=== PATIENT | female | born 1950 | race American Indian/Alaskan Native ===

== ENCOUNTER 2019-03-30 18:46 | Emergency (ER) | payer MEDICARE ==
[2019-03-30] MEDS ORDERED: ASPIRIN 325 MG TAB PO ONE (19:09)
--- NOTE | 2019-03-30 19:11 | Event Note ---
ED Screening Note Date of service: 03/30/19 Time: 19:08 ED Screening Note: this 68 yo female presents with left sided chest pain x yesterday PMH: HTN on meds This initial assessment/diagnostic orders/clinical plan/treatment(s) is/are subject to change based on patients health status, clinical progression and re- assessment by fellow clinical providers in the ED. Further treatment and workup at subsequent clinical providers discretion. Patient/guardian urged not to elope from the ED as their condition may be serious if not clinically assessed and managed. Initial orders include: cp protocol
[2019-03-30 19:25] LABS: Basophils # (Auto) 0.1 K/mm3 (0.0-0.1); Basophils % (Auto) 1.3 % (0.0-1.8); Eosinophils # (Auto) 0.1 K/mm3 (0.0-0.4); Eosinophils % (Auto) 1.2 % (0.0-4.3); Hematocrit 44.3 % (30.3-42.9); Hemoglobin 15.2 gm/dl (10.1-14.3); Lymphocytes # (Auto) 1.9 K/mm3 (1.2-5.4); Lymphocytes % (Auto) 29.8 % (13.4-35.0); Mean Corpuscular HGB Conc 34 % (30-34); Mean Corpuscular Volume 97 fl (79-97); Monocytes # (Auto) 0.8 K/mm3 (0.0-0.8); Monocytes % (Auto) 12.8 % (0.0-7.3); Platelet Count 272 K/mm3 (140-440); Red Blood Count 4.57 M/mm3 (3.65-5.03); Red Cell Distribution Width 14.9 % (13.2-15.2)
--- NOTE | 2019-03-30 19:39 | XRay Report ---
CHEST 2 VIEWS INDICATION: Chest Pain. COMPARISON: 02/03/2018 FINDINGS: Support devices: None. Heart: Within normal limits. Lungs/pleura: No acute air space or interstitial disease. No pneumothorax. Additional findings: None. IMPRESSION: 1. No acute findings. Signer Name: Rupert Villaseñor MD Signed: 03/30/2019 7:34 PM Workstation Name: [id number]
[2019-03-30 19:47] LABS: BUN/Creatinine Ratio 10; Blood Urea Nitrogen 4 mg/dL (7-17); Calcium 8.5 mg/dL (8.4-10.2); Hemolysis Index 16
[2019-03-30] MEDS ORDERED: ALBUTEROL 2.5 MG/3 ML NEBU IH ONE (22:38)
[2019-03-30] MEDS ORDERED: IPRATROPIUM 0.02% NEBU 2.5 ML IH ONE (22:38)
[2019-03-30] MEDS ORDERED: SODIUM CHLORIDE 0.9% 1000 ML 1,000 ML IV ONE (22:38)
[2019-03-30] MEDS ORDERED: dexAMETHasone 20 MG/5 ML VIAL IV ONE (22:38)
[2019-03-30] MEDS ORDERED: traMADol 50 MG TAB PO ONE (22:38)
--- NOTE | 2019-03-30 22:58 | Emergency Department Report ---
ED General Adult HPI - General Chief complaint: Chest Pain Stated complaint: CHEST PAIN Time Seen by Provider: 03/30/19 22:27 Source: patient Mode of arrival: Ambulatory Limitations: No Limitations - History of Present Illness Initial comments: Patient is a 68-year-old female presented with chest discomfort. Patient has a history of hypertension COPD who does occasional breathing treatments at home but is not oxygen dependent. Patient states that for the last week she's had some soreness mostly in the left chest. Patient states soreness is worse with coughing and occasionally with certain movements. Patient states is a tight sensation that'll last up to several seconds at a time. States since been intermittent. Patient states chest pain was worse today and is more continuous. Patient states she has not had any extra shortness of breath besides the shortness of breath and only experiences with her COPD however she has had increased cough which is productive of clear yellow sputum. Cough is been present for the same time that the patient has been having the chest discomfort. Patient also states he's had some decreased appe tite. Patient is less when she is not feeling well. She's had some mild dizziness as well. - Related Data Home Medications Medication Instructions Recorded Confirmed Last Taken Ascorbic Acid [Vitamin C with Dee Dee 1,000 mg PO BID 02/03/18 02/03/18 Unknown Hips] Carvedilol [Coreg] 25 mg PO BID 02/03/18 02/03/18 02/02/18 Cholecalciferol Vit D3 [Vitamin D3] 1,000 unit PO QWEEK 02/03/18 02/03/18 Unknown Previous Rx's Medication Instructions Recorded Last Taken Type HYDROcodone/APAP 5-325 [[place] 1 each PO Q6HR PRN #15 tablet 02/03/18 Unknown Rx 5/325] ALBUTEROL NEB's [Proventil 0.083% 2.5 mg IH TID PRN #20 neb 03/31/19 Unknown Rx NEBS] Benzonatate [Tessalon Perles] 100 mg PO Q8HR #10 capsule 03/31/19 Unknown Rx DOXYCYCLINE Hyclate [Vibramycin 100 mg PO Q12HR #14 capsule 03/31/19 Unknown Rx CAP] Fluticasone [Flonase] 1 spray NS QDAY #1 bottle 03/31/19 Unknown Rx predniSONE [Deltasone] 20 mg PO QDAY #5 tab 03/31/19 Unknown Rx Allergies Allergy/AdvReac Type Severity Reaction Status Date / Time No Known Allergies Allergy Unverified 02/03/18 03:06 ED Review of Systems ROS: Stated complaint: CHEST PAIN Other details as noted in HPI Comment: All other systems reviewed and negative ED Past Medical Hx - Past Medical History Previous Medical History?: Yes Hx Hypertension: Yes - Surgical History Past Surgical History?: No - Social History Smoking Status: Current Every Day Smoker Substance Use Type: Alcohol - Medications Home Medications: Home Medications Medication Instructions Recorded Confirmed Last Taken Type Ascorbic Acid [Vitamin C with Dee Dee 1,000 mg PO BID 02/03/18 02/03/18 Unknown History Hips] Carvedilol [Coreg] 25 mg PO BID 02/03/18 02/03/18 02/02/18 History Cholecalciferol Vit D3 [Vitamin D3] 1,000 unit PO QWEEK 02/03/18 02/03/18 Unknown History HYDROcodone/APAP 5-325 [[place] 1 each PO Q6HR PRN #15 tablet 02/03/18 Unknown Rx 5/325] ALBUTEROL NEB's [Proventil 0.083% 2.5 mg IH TID PRN #20 neb 03/31/19 Unknown Rx NEBS] Benzonatate [Tessalon Perles] 100 mg PO Q8HR #10 capsule 03/31/19 Unknown Rx DOXYCYCLINE Hyclate [Vibramycin 100 mg PO Q12HR #14 capsule 03/31/19 Unknown Rx CAP] Fluticasone [Flonase] 1 spray NS QDAY #1 bottle 03/31/19 Unknown Rx predniSONE [Deltasone] 20 mg PO QDAY #5 tab 03/31/19 Unknown Rx ED Physical Exam - General Limitations: No Limitations General appearance: alert, in no apparent distress - Head Head exam: Present: atraumatic, normocephalic - Eye Eye exam: Present: normal appearance, PERRL, EOMI - ENT ENT exam: Present: normal orophraynx, mucous membranes moist - Neck Neck exam: Present: normal inspection - Respiratory Respiratory exam: Present: normal lung sounds bilaterally, wheezes (patient has a bronchitic cough. Patient coughs every time she takes a deep breath.). Absent: respiratory distress, rales, rhonchi - Cardiovascular Cardiovascular Exam: Present: regular rate, normal rhythm. Absent: systolic murmur, diastolic murmur, rubs, gallop - GI/Abdominal GI/Abdominal exam: Present: soft, normal bowel sounds. Absent: distended, tenderness, guarding, rebound - Extremities Exam Extremities exam: Present: normal inspection - Back Exam Back exam: Present: normal inspection - Neurological Exam Neurological exam: Present: alert, oriented X3 - Psychiatric Psychiatric exam: Present: normal affect, normal mood - Skin Skin exam: Present: warm, dry, intact, normal color. Absent: rash ED Course Vital Signs 03/30/19 03/30/19 03/31/19 19:08 23:40 00:00 Temperature 98.3 F Pulse Rate 83 77 Pulse Rate [ 87 Bilateral Throughout] Respiratory 20 17 Rate Respiratory 20 Rate [Bilateral Throughout] Blood Pressure 119/70 135/84 O2 Sat by Pulse 96 96 Oximetry 03/31/19 03/31/19 00:11 01:00 Temperature Pulse Rate 78 80 Pulse Rate [ Bilateral Throughout] Respiratory 20 20 Rate Respiratory Rate [Bilateral Throughout] Blood Pressure 135/84 156/91 O2 Sat by Pulse 96 98 Oximetry - Reevaluation(s) Reevaluation #1: 03/30/19 22:57 Since first troponin was negative. Second troponin will be ordered to rule out SD. Patient also will be given a liter of normal saline as her sodium and ch loride level are low. Patient likely with some mild dehydration secondary to not eating and drinking well due to her illness. Deny was been ordered to rule out pulmonary embolus as the patient has pain with deep breathing. ED Medical Decision Making - Lab Data Result diagrams: 03/30/19 19:13 03/30/19 19:13 Lab Results 03/30/19 03/30/19 03/30/19 Range/Units 19:13 19:13 22:40 WBC 6.5 (4.5-11.0) K/mm3 RBC 4.57 (3.65-5.03) M/mm3 Hgb 15.2 H (10.1-14.3) gm/dl Hct 44.3 H (30.3-42.9) % MCV 97 (79-97) fl MCH 33 H (28-32) pg MCHC 34 (30-34) % RDW 14.9 (13.2-15.2) % Plt Count 272 (140-440) K/mm3 Lymph % (Auto) 29.8 (13.4-35.0) % [place] % (Auto) 12.8 H (0.0-7.3) % Eos % (Auto) 1.2 (0.0-4.3) % Baso % (Auto) 1.3 (0.0-1.8) % Lymph # 1.9 (1.2-5.4) K/mm3 [place] # 0.8 (0.0-0.8) K/mm3 Eos # 0.1 (0.0-0.4) K/mm3 Baso # 0.1 (0.0-0.1) K/mm3 Seg Neutrophils % 54.9 (40.0-70.0) % Seg Neutrophils # 3.6 (1.8-7.7) K/mm3 D-Dimer (0-234) ng/mlDDU Sodium 127 L (137-145) mmol/L Potassium 4.0 (3.6-5.0) mmol/L Chloride 91.5 L (98-107) mmol/L Carbon Dioxide 19 L (22-30) mmol/L Anion Gap 21 mmol/L BUN 4 L (7-17) mg/dL Creatinine 0.4 L (0.7-1.2) mg/dL Estimated GFR > 60 ml/min BUN/Creatinine Ratio 10 % Glucose 110 H (65-100) mg/dL Calcium 8.5 (8.4-10.2) mg/dL Troponin T < 0.010 < 0.010 (0.00-0.029) ng/mL 03/30/19 Range/Units 22:45 WBC (4.5-11.0) K/mm3 RBC (3.65-5.03) M/mm3 Hgb (10.1-14.3) gm/dl Hct (30.3-42.9) % MCV (79-97) fl MCH (28-32) pg MCHC (30-34) % RDW (13.2-15.2) % Plt Count (140-440) K/mm3 Lymph % (Auto) (13.4-35.0) % [place] % (Auto) (0.0-7.3) % Eos % (Auto) (0.0-4.3) % Baso % (Auto) (0.0-1.8) % Lymph # (1.2-5.4) K/mm3 [place] # (0.0-0.8) K/mm3 Eos # (0.0-0.4) K/mm3 Baso # (0.0-0.1) K/mm3 Seg Neutrophils % (40.0-70.0) % Seg Neutrophils # (1.8-7.7) K/mm3 D-Dimer 307.77 H (0-234) ng/mlDDU Sodium (137-145) mmol/L Potassium (3.6-5.0) mmol/L Chloride (98-107) mmol/L Carbon Dioxide (22-30) mmol/L Anion Gap mmol/L BUN (7-17) mg/dL Creatinine (0.7-1.2) mg/dL Estimated GFR ml/min BUN/Creatinine Ratio % Glucose (65-100) mg/dL Calcium (8.4-10.2) mg/dL Troponin T (0.00-0.029) ng/mL - EKG Data -: EKG Interpreted by [place] EKG shows normal: sinus rhythm, axis, intervals, QRS complexes, ST-T waves - EKG Data Interpretation: [facility] - Radiology Data CHEST 2 VIEWS INDICATION: Chest Pain. COMPARISON: 02/03/2018 FINDINGS: Support devices: None. Heart: Within normal limits. Lungs/pleura: No acute air space or interstitial disease. No pneumothorax. Additional findings: None. IMPRESSION: 1. No acute findings. Signer Name: Rupert Villaseñor MD Signed: 03/30/2019 7:34 PM Workstation Name: [id number] CT angio chest INDICATION: P.E. PROTOCOL!!! Pain with cough, elevated D-dimer. TECHNIQUE: All CT scans at this location are performed using CT dose reduction for ALARA by means of automated exposure control. Precontrast localizer images were obtained, followed by axial and 3-dimensional reconstruction images, performed at an independent workstation by the radioisotope technologist after IV bolus contrast injection. COMPARISON: None available. FINDINGS: Mediastinum, cami and axillae are negative. Thoracic aorta is unremarkable. Emphysema but no acute superimposed disease. Negative for pulmonary embolus. IMPRESSION: 1. Emphysema, but no pulmonary embolus or other acute abnormality. Signer Name: Fareed Fuentes MD Signed: 03/31/2019 12:57 AM Workstation Name: [id number] - Medical Decision Making Patient received a neb treatment is feeling much improved. Patient has had [address] is ruled out pneumonia pneumothorax, embolus and pericardial effusion. Patient likely with a COPD exacerbation with costochondritis. Patient be discharged home with medication symptomatic relief. Critical Care Time: Yes (30) Critical care attestation.: If time is entered above; I have spent that time in minutes in the direct care of this critically ill patient, excluding procedure time. ED Disposition Clinical Impression: Acute exacerbation of chronic obstructive pulmonary disease (COPD), Costochondral chest pain Disposition: - TO HOME OR SELFCARE Is pt being admited?: No Does the pt Need Aspirin: No Condition: Stable Instructions: Chronic Obstructive Pulmonary Disease (ED), Costochondritis (ED) Referrals: PRIMARY CARE, [Referring] - 3-5 Days Time of Disposition: 01:40
--- NOTE | 2019-03-31 01:02 | Cat Scan Report ---
CT angio chest INDICATION: P.E. PROTOCOL!!! Pain with cough, elevated D-dimer. TECHNIQUE: All CT scans at this location are performed using CT dose reduction for ALARA by means of automated e xposure control. Precontrast localizer images were obtained, followed by axial and 3-dimensional reconstruction images , performed at an independent workstation by the applied technologist after IV bolus contrast injection. COMPARISON: None available. FINDINGS: Mediastinum, cami and axillae are negative. Thoracic aorta is unremarkable. Emphysema but no acute superimposed disease. Negative for pulmonary embolus. IMPRESSION: 1. Emphysema, but no pulmonary embolus or other acute abnormality. Signer Name: Fareed Fuentes MD Signed: 03/31/2019 12:57 AM Workstation Name: [id number]
[2019-03-31 01:08] VITALS: BP 156/91
== END 2019-03-31 02:40 | disposition home or self-care (01) ==
LOC: ED 18:46
DX: J44.1 Chronic obstructive pulmonary disease with (acute) exacerbation (principal); M94.0 Chondrocostal junction syndrome [Tietze]; I10 Essential (primary) hypertension; F17.200 Nicotine dependence, unspecified, uncomplicated; Z79.899 Other long term (current) drug therapy
CPT/HCPCS: 36415; 71046; 71275; 80048; 84484; 85025; 85379; 93005; 93010; 94644; 96361; 96374; 99285; J1100; J7030; Q9967